=== PATIENT | male | born 1970 | race Caucasian/White ===

== ENCOUNTER → 2016-08-30 | Outpatient (CLI) | payer OTHER | END | disposition home or self-care (01) | LOC: CFH 14:45 | PROVIDERS: ATTEND Internal Medicine Cardiovascular Disease | DX: I48.91 Unspecified atrial fibrillation (principal); I51.7 Cardiomegaly; I08.1 Rheumatic disorders of both mitral and tricuspid valves; I37.1 Nonrheumatic pulmonary valve insufficiency; I11.0 Hypertensive heart disease with heart failure; I50.9 Heart failure, unspecified | CPT/HCPCS: 93306 ==

== ENCOUNTER 2017-02-18 10:16 | Day surgery (SDC) | payer OTHER ==
[2017-02-15 09:28] VITALS: BP 162/108
[2017-02-15 09:36] LABS: WHITE BLOOD COUNT 6.7 x10^3/uL (3.4-10)
[2017-02-15 09:46] LABS: BLOOD UREA NITROGEN 17 mg/dL (7-18)
[~2017-02-18] VITALS: Ht 177.8 cm; Wt 93.2 kg
[~2017-02-18 10:16] MED LIST: ALBU8.5H8 PO; ASMANEX PO; ESOM20CA PO; MONT10TA9 PO; VALS1TAB26 PO
[2017-02-18] MEDS ORDERED: ASPI-621 PO (10:41)
[2017-02-18] MEDS ORDERED: SODIUM CHLORIDE 0.9% 1,000 ML IV SCH (11:00)
[2017-02-18] MEDS ORDERED: PROPOFOL 10 MG/ML, 20ML ONE (12:28)
[2017-02-18] MEDS ORDERED: APIX5TAB PO (13:43)
== END 2017-02-18 14:21 ==
LOC: CACL 10:16
PROVIDERS: ATTEND Internal Medicine Cardiovascular Disease
DX: I48.91 Unspecified atrial fibrillation (principal); I10 Essential (primary) hypertension; E78.5 Hyperlipidemia, unspecified; Z87.39 Personal history of other diseases of the musculoskeletal system and connective tissue; Z91.09 Other allergy status, other than to drugs and biological substances
CPT/HCPCS: 36415; 80048; 85025; 85610; 92960; 93005; 93312; 93321; 93325; J2704

== ENCOUNTER 2017-03-25 06:14 | Day surgery (SDC) | payer OTHER ==
[~2017-03-25] VITALS: Ht 177.8 cm; Wt 95.5 kg
[~2017-03-25 06:14] MED LIST changes: +APIX5TAB PO; +ASPI-621 PO
[2017-03-25] MEDS ORDERED: FLEC100T PO (06:43)
[2017-03-25 06:45] VITALS: BP 148/101
[2017-03-25 07:09] LABS: BLOOD UREA NITROGEN 13 mg/dL (7-18)
[2017-03-25] MEDS ORDERED: PROPOFOL 10 MG/ML, 20ML ONE (08:37)
== END 2017-03-25 10:06 ==
LOC: CACL 06:14
PROVIDERS: ATTEND Internal Medicine Cardiovascular Disease
DX: I48.91 Unspecified atrial fibrillation (principal); I10 Essential (primary) hypertension; E78.5 Hyperlipidemia, unspecified; Z79.82 Long term (current) use of aspirin
CPT/HCPCS: 36415; 80048; 92960; J2704